=== PATIENT | male | born 1955 | race Caucasian/White ===

== ENCOUNTER 2019-02-13 10:31 | Emergency (ER) | payer OTHER, SELFPAY ==
[2019-02-13 10:34] VITALS: BP 105/68; PULSE 68; RESP 17; TEMP 36.5; O2SAT 94; BMI 21.6
[2019-02-13 11:07] VITALS: PULSE 64; RESP 16; O2SAT 98
--- NOTE | 2019-02-13 11:25 | MRI_ITS ---
STUDY: MRI LUMBAR SPINE WITHOUT CONTRAST REASON FOR EXAM: Male, 63 years old. Weakness. Paresthesia. Back pain. TECHNIQUE: Standardized fat and water weighted pulse sequences were obtained in the sagittal and axial planes. COMPARISON: None FINDINGS: Lumbar lordosis preserved. No significant scoliosis. Conus medullaris terminates normally at the L1 level. No acute fracture. No dislocation. No bone destruction. Normal paraspinal muscles. Normal aorta. Normal retroperitoneum. T12-L1: Normal endplates. Normal disc height, hydration and morphology. Normal bilateral facet joints. Normal central canal and bilateral lateral recesses. Normal bilateral intervertebral neural foramina. L1-2: Normal endplates. Disc bulge with mild central canal narrowing. Normal bilateral facet joints. Normal central canal and bilateral lateral recesses. Bilateral neural foraminal narrowing without impingement. L2-3: Normal endplates. Shallow disc bulge. Facet joint arthrosis. Normal central canal and bilateral lateral recesses. Bilateral neural foraminal narrowing without impingement. L3-4: Normal endplates. Shallow disc bulge. Facet joint arthrosis. Normal central canal and bilateral lateral recesses. Bilateral neural foraminal narrowing without impingement. L4-5: Minimal endplate spondylosis. Disc bulge, annular fissure and tiny left paracentral protrusion (axial image 6 series 5), with mild central canal narrowing. Facet joint arthrosis. Lateral lateral recess narrowing without impingement. Bilateral neural foraminal narrowing without impingement. L5-S1: Mild endplate spondylosis. Disc bulge, annular fissure slightly asymmetric to the right, without central canal narrowing. Facet joint arthrosis. Right lateral recess narrowing without impingement. Bilateral neural foraminal narrowing with contact of the exiting nerve roots MRI/Spine Lumbar (Routine) IMPRESSION: Multilevel intervertebral disc disease with mild central canal narrowing at L1-2 and L4-5 Multilevel lateral recess narrowing without impingement Multilevel neural foraminal narrowing with contact of the L5 exiting nerve roots Mild lumbar spine osteoarthritis Electronically Signed: Darek Shaffer DO at 13:32 EST Tel , Service support ,
[2019-02-13 11:45] LABS: Absolute Lymphocyte Count 1.53 X10^3/uL (0.83-4.51); Absolute Neutrophil Count 2.3 X10^3/uL (2.0-7.7); Basophil# 0.04 X10^3/uL; Basophil% 0.9 % (0-1); Eosinophil# 0.05 X10^3/uL; Eosinophils% 1.1 % (0-5); Hematocrit 44.1 % (40-54); Hemoglobin 14.4 g/dL (13.0-16.5); Lymphocyte # 1.53 X10^3/ul (4.0); Lymphocyte % 34.5 % (19-41); Mean Corp Hgb Conc 32.7 g/dL (32-36); Mean Corpuscular Hgb 28.9 pg (27.0-32.0); Mean Corpuscular Volume 88.6 fL (80-94); Mean Platelet Vol. 9.4 fl (6.2-12.0); Monocyte# 0.47 X10^3/uL; Monocyte% 10.6 % (0-10); NRBC Flagged by Analyzer 0 % (0-5); Neutrophil # 2.32 X10^3/uL (2.7-7.7); Neutrophil % 52.4 % (47-70); Platelet Count 210 K/mm3 (150-450); RBC Distribution Width CV 13.9 % (11.6-14.6); RBC Distribution Width SD 44.3 fl (35.1-43.9); Red Blood Count 4.98 M/mm3 (4.6-6.2); White Blood Count 4.4 K/mm3 (4.4-11.0)
[2019-02-13 11:58] LABS: Anion Gap 0 (5-15); BUN 11 mg/dL (7-18); BUN/Creat Ratio 13.1 RATIO (10-20); Calcium,Total 8.9 mg/dL (8.5-10.1); Chloride 106 mmol/L (98-107); Creatinine, Serum 0.84 mg/dL (0.70-1.30); EST Glomerular Filtration Rate 98 mL/min (>60); Est Glom Filt Rate - Afr Amer 119 mL/min (>60); Estimated Creatinine Clearance 90.67 ml/min; Glucose 90 mg/dL (74-106); Sodium Level 140 mmol/L (136-145)
[2019-02-13 13:52] VITALS: BP 111/68; PULSE 58; RESP 16; O2SAT 96
--- NOTE | 2019-02-13 14:10 | ED.VIS.BACK ---
History of Present Illness Chief Complaint: Numb/Ting Informant: Patient Onset: Weeks Context: Gradual Onset Narrative: Patient is a 63-year-old Jack male presenting with 2 weeks of worsening paresthesias of his bilateral feet. He does in the past few days he has been having a hard time walking because he is felt his balance has been off. He also notes he has had some slight back pain. He denies any injury or falls. 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 He had a decompressive surgery of his neck. He still has some difficulty fully extending his fingers bilaterally. Patient denies any associated fever, incontinence or numbness. He saw his chiropractor on Wednesday who recommended that he get an MRI for further evaluation. Nadia was previously ambulating independently. Past Medical History - Allergies and Home Meds Allergies/Adverse Reactions: Allergies No Known Allergies Allergy (Verified 02/13/19 10:32) Primary Care Physician: Nabil Kearney DO [Primary Care Provider] - Past Medical History: - - C spine injury Surgical History: - - decompressive C spine surgery Smoking Status: Never smoker Review of Systems General: Denies: Chills, Fever, Sweats Eyes: Denies: Visual changes - bilaterally, Diplopia ENT: Denies: Rhinorrhea, Sore throat Cardiovascular: Denies: Chest pain, Palpitations Respiratory: Denies: Dyspnea, Cough, Dyspnea on exertion Gastrointestinal: Denies: Abdominal pain, Nausea, Vomiting, Diarrhea, Melena, Hematochezia Genitourinary: Denies: Dysuria, Hematuria, Frequency Musculoskeletal: Reports: Back pain. Denies: Extremity Pain Skin: Denies: Rash, Wounds Neurological: Reports: Parasthesia - bilateral feet. Denies: Headache, Weakness, Numbness Physical Exam Vital Signs/Narrative: Vital Signs Temp Pulse Resp BP Pulse Ox 02/13/19 13:52 58 L 16 111/68 96 02/13/19 11:07 64 16 98 02/13/19 10:34 97.7 F L 68 17 105/68 94 Inital Vital Signs reviewed: Yes General: Well nourished, Well developed Head: Normocephalic, Atraumatic Eyes: Perrl, EOMI ENT: Moist mucous membranes, No rhinorrhea Neck: Supple, Nontender Cardiovascular: Regular rate, Regular rhythm, No murmurs Respiratory: No distress, CTA bilaterally, Chest nontender Abdomen: Soft, Nontender, Nondistended, Normal bowel sounds Back: Normal Inspection, Nontender. Negative for: Spinal tenderness Extremeties: Nontender, No edema Skin: Normal color, No rash Neuro: Normal Strength, Normal Sensation, Parasthesia - Bilateral lower feet. Negative for: Normal DTR - Diminished patellar reflexes bilaterally, no clonus Reflexes: Right Babinski - Unable to produce, Left Babinski - Unable to produce. Negative for: Right Patellar, Right Clonus, Left Patellar, Left Clonus Psychological: Normal affect Diagnostic/Tx/Re-eval Clinical Impression(s) from Imaging Studies Lumbar Spine MRI 02/13/19 11:25 IMPRESSION: Multilevel intervertebral disc disease with mild central canal narrowing at L1-2 and L4-5 Multilevel lateral recess narrowing without impingement Multilevel neural foraminal narrowing with contact of the L5 exiting nerve roots Mild lumbar spine osteoarthritis Electronically Signed: Darek Shaffer DO at 13:32 EST Tel , Service support , Laboratory Data 02/13/19 02/13/19 10:30 10:30 WBC 4.4 RBC 4.98 Hgb 14.4 Hct 44.1 MCV 88.6 MCH 28.9 MCHC 32.7 RDW Std Deviation 44.3 H RDW Coeff of Irina 13.9 Plt Count 210 MPV 9.4 Immature Gran % (Auto) 0.500 Neut % (Auto) 52.4 Lymph % (Auto) 34.5 [place] % (Auto) 10.6 H Eos % (Auto) 1.1 Baso % (Auto) 0.9 Absolute Neuts (auto) 2.3 Absolute Lymphs (auto) 1.53 Nucleated RBC % 0 Sodium 140 Potassium 4.0 Chloride 106 Carbon Dioxide 34.0 H Anion Gap 0 L BUN 11 Creatinine 0.84 Estim Creat Clear Calc 90.67 Est GFR (MDRD) Af Amer 119 Est GFR (MDRD) Non-Af 98 BUN/Creatinine Ratio 13.1 Glucose 90 Calcium 8.9 - Medical Decision Making Patient is evaluated for 2 weeks of paresthesias of his lower legs/feet. He is also had difficulty walking and been using a walker. He does have prior history of C-spine surgery. I did obtain MRI because patient has abnormal reflexes which did show narrowing of the L5 spinal roots but no critical stenosis. Patient CBC and BMP are normal. He has a normal new glucose and I do not suspect peripheral neuropathy at this time. Discussed the case with neurosurgery, Dr. De La Rosa, at [place] who reviewed the MRI. He feels that patient is stable for outpatient follow-up. He does recommend starting patient on Medrol Dosepak, gabapentin, tizanidine and Naprosyn. He will see the patient outpatient. Patient and family are agreeable with this plan. I do think he is stable for outpatient follow-up. Patient is counseled on signs and symptoms requiring return to the emergency room. Patient verbalizes agreement and understand this plan. Patient discharged home in stable and improved condition. 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 I suspect this is causing your paresthesias. He will be started on medications to help calm down inflammation and hopefully improve your symptoms. You need to follow-up with the neurosurgeon at [place], Dr. De La Rosa. Return to the emergency room if you develop worsening back pain, new weakness of your legs or incontinence. Please follow up with Dr. De LaR osa [phone], Neurosurgery in [place]
--- NOTE | 2019-02-13 15:17 | NURSING ---
[id number] CALLED [facility] ABOUT TRANSFER VS CONSULT. PAGED NEUROSURGEON
[2019-02-13 16:00] VITALS: BP 126/74; PULSE 60; RESP 16; O2SAT 98
== END 2019-02-13 16:41 | disposition home or self-care (01) ==
PROVIDERS: Emergency Provider Emergency Medicine; Family Provider Family Medicine; PCP Family Medicine
DX: S34.21XA Injury of nerve root of lumbar spine, initial encounter (principal); X58.XXXA Exposure to other specified factors, initial encounter; R20.2 Paresthesia of skin
CPT/HCPCS: 72148; 80048; 85025; 99283; A4216